=== PATIENT | male | born 1965 | race Caucasian/White ===

== ENCOUNTER 2018-12-08 00:26 | Day surgery (SDC) | payer OTHER ==
[~2018-12-08] VITALS: Ht 154.9 cm; Wt 85.7 kg
[~2018-12-08 00:26] MED LIST: BACI1TAB2; MULT1CAP59 PO; OMEG-26 PO; TURM500C4 PO; VIT D; VITA1CAP46 PO; [UNRECOGNIZED DRUG - CODE] FT
[2018-12-08 08:09] VITALS: BP 125/89
[2018-12-08] MEDS ORDERED: NORMOSOL R SOLN(*) 1000 ML BAG 1,000 ML IV PRN (08:15)
[2018-12-08] MEDS ORDERED: LIDOCAINE/SOD BICARB 8.4% SYR ID ONE (08:15)
[2018-12-08 09:53] VITALS: BP 103/50
--- NOTE | 2018-12-08 09:58 | Short(Outpt) Discharge Summary ---
Discharge Summary Reason for Hosp/Final Diag: (1) Encounter for screening colonoscopy Hospital Course & Plan: pt presented for colonoscopy. he tolerated the procedure well. he will be discharged home when criteria met. Discharge Instructions Home Meds Reported Medications Multivitamin (MULTIVITAMINS) 1 Each Capsule, 1 EACH PO QDAY, CAPSULE 11/29/18 Vitamin B Complex (VITAMIN B COMPLEX) 1 Each Capsule, 1 EACH PO, CAPSULE 09/20/18 Turmeric/Turmeric Root Extract (Turmeric 500 mg Capsule) 450 Mg-50 Mg Capsule, 1 TAB PO QDAY 09/20/18 Bacillus Coagulans (Digestive Advantage) Unknown Strength Tab.chew 09/20/18 [Vit D] No Conflict Check, 1000 DAILY 02/12/12 [place]-3/Dha/Epa/Fish Oil (FISH OIL 1,000 MG SOFTGEL) 1 Each Capsule, 1 EACH PO DAILY 02/12/12 Diet: Regular Activity: As Tolerated Special Instructions: repeat colonoscopy in 10 yrs. ESDRAS HUGO Dec 08, 2018 09:58
[2018-12-08 10:30] VITALS: BP 99/87
[2018-12-08 10:46] VITALS: BP 120/80
[2018-12-08 10:48] VITALS: BP 117/81
--- NOTE | 2018-12-08 11:15 | NUR ---
0953-PT. RECEIVED FROM THE OR VIA STRETCHER WITH THE SIDERAILS UP. SBAR RECEIVED FROM DR. JIN AND HARSHA RN. SEE ADMISSION ASSESSMENT. 1004- PT. RETURNED TO ROOM AIR. 1030- PT. TURNS DOWN ANY FOOD OR DRINK OFFERED SAYING THAT HE WANTS TO HAVE A REAL MEAL WHEN HE GETS OUT OF HERE. 1040- DR. HUGO IN WITH THE PT. 1046- PT. STATES THAT HE IS READY TO GO HOME SO ORTHOSTATICS WERE PREFORMED. 1050- PT. GETTING DRESSED. 1055- IV TAKEN OUT. 1100- PT. ACCOMPANIED OUT BY KWAME HICKMAN AND .
== END 2018-12-08 11:00 | disposition home or self-care (01) ==
LOC: OR 00:26
PROVIDERS: ATTEND Surgery
DX: Z12.11 Encounter for screening for malignant neoplasm of colon (principal); R19.7 Diarrhea, unspecified